=== PATIENT | male | born 1950 | race Caucasian/White ===

== ENCOUNTER 2018-05-23 18:38 | Emergency (ER) | payer MEDICARE, MEDICAID ==
[~2018-05-23] VITALS: Ht 177.8 cm; Wt 93.0 kg
[2018-05-23 19:14] VITALS: BP 150/55
--- NOTE | 2018-05-23 20:40 | NUR ---
PT TAKEN TO BED 7
--- NOTE | 2018-05-23 20:44 | NUR ---
BIB SELF. PT STATES HX OF DMII. STRUGGLING WITH INFECTION TO LEFT 3RD FINGER. TIP IS NECROTIC. 1CM OF TIP BLACK TISSUE. EDEMA ALONG FINGER AND HAND. 6/10 PAIN. PT STATES X3 SURGERIES TO FINGER BUT DIFFICULT TO HEAL. VSS. POSITIONED IN BED FOR COMFORT. ER MD AWARE. CONTINUE TO MONITOR.
--- NOTE | 2018-05-23 20:44 | NUR ---
Dr. Powers evaluating patient at bedside.
[2018-05-23 21:09] LABS: BASOPHILS % (AUTO) 0.5 % (0.0-2.0); EOSINOPHILS # (AUTO) 0.3 K/uL (0-0.4); EOSINOPHILS % (AUTO) 3.9 % (0.0-4.0); HEMATOCRIT 35.9 % (36-52); HEMOGLOBIN 12.1 g/dL (12.0-18.0); LYMPHOCYTES # (AUTO) 2.4 K/uL (2.0-11.5); LYMPHOCYTES % (AUTO) 31.2 % (20.5-51.1); MEAN CORPUSCULAR HEMOGLOBIN 32 pg (27-31); MEAN CORPUSCULAR HGB CONC 34 g/dL (33-37); MEAN CORPUSCULAR VOLUME 94.7 fL (80-94); MONOCYTES # (AUTO) 0.6 K/uL (0.8-1.0); MONOCYTES % (AUTO) 7.7 % (1.7-9.3); NEUTROPHILS # (AUTO) 4.3 K/uL (1.8-7.7); NEUTROPHILS % (AUTO) 56.7 % (42.2-75.2); PLATELET COUNT (AUTO) 243 K/uL (140-450); RED BLOOD CELL COUNT(AUTO) 3.79 MIL/uL (4.20-6.10); RED CELL DISTRIBUTION WIDTH 13.5 % (11.6-13.7); WHITE BLOOD COUNT (AUTO) 7.6 K/uL (4.8-10.8)
[2018-05-23 21:22] LABS: ANION GAP 9.2 (8-16); CARBON DIOXIDE 30.7 mmol/L (21-32); CREATININE 1.1 mg/dL (0.7-1.3); POTASSIUM 4.9 mmol/L (3.5-5.1)
[2018-05-23 21:28] LABS: ALBUMIN 3.8 g/dL (3.4-5.0); TOTAL BILIRUBIN 0.2 mg/dL (0.0-1.0)
[2018-05-23] MEDS ORDERED: INSULIN REGULAR, HUMAN 100 UNIT/ML VIAL SUBQ ONE (21:35)
[2018-05-23 22:25] VITALS: BP 148/62
--- NOTE | 2018-05-23 22:25 | NUR ---
Patient discharged with v/s stable. Written and verbal after care instructions given and explained. Patient alert, oriented and verbalized understanding of instructions. Ambulatory with steady gait. All questions addressed prior to discharge. ID band removed. Patient advised to follow up with PMD. Rx of Keflex and Bactrim given. Patient educated on indication of medication including possible reaction and side effects. Opportunity to ask questions provided and answered.
== END 2018-05-23 22:25 | disposition home or self-care (01) ==
LOC: MED 18:38
DX: L03.012 Cellulitis of left finger (principal); I10 Essential (primary) hypertension; E11.9 Type 2 diabetes mellitus without complications; E11.65 Type 2 diabetes mellitus with hyperglycemia; Z98.890 Other specified postprocedural states
CPT/HCPCS: 36415; 73140; 80053; 83605; 85025; 87040; 96372; 99284; J1815; Q0092

== ENCOUNTER 2018-10-08 13:55 | Emergency (ER) | payer MEDICARE, MEDICAID ==
[~2018-10-08] VITALS: Ht 177.8 cm; Wt 88.0 kg
[2018-10-08 14:00] VITALS: BP 148/77
--- NOTE | 2018-10-08 14:11 | NUR ---
68 y male bib referred by pmd. c/o left hand 3rd digit swelling, redness, 5/10 pain x yesterday. pain described as dull and constant. denies discharge. denies n/v/d, chills or fever. vss at this time. [id number]. bed is down, locked, bed rail x 1, ermd to see ptIglesia ace translated to serbian. hx--dm, hyperlipidemia, htn rx---??
--- NOTE | 2018-10-08 14:24 | NUR ---
dr frazier at bedside
[2018-10-08] MEDS ORDERED: LIDOCAINE 1% ***ER ONLY *** 10 MG/ML VIAL INJ ONE (14:30)
[2018-10-08] MEDS ORDERED: LIDOCAINE MPF 1% - 5 mL VIAL 5 ML ONE (14:45)
--- NOTE | 2018-10-08 15:30 | NUR ---
SITE WRAPPED WITH GAUZE
[2018-10-08 15:51] VITALS: BP 142/75
--- NOTE | 2018-10-08 15:51 | NUR ---
Patient discharged with v/s stable. Written and verbal after care instructions given and explained. Patient alert, oriented and verbalized understanding of instructions. Ambulatory with steady gait. All questions addressed prior to discharge. ID band removed. Patient advised to follow up with PMD. Rx of keflex, motrin, bactrim given. Patient educated on indication of medication including possible reaction and side effects. Opportunity to ask questions provided and answered. juan wisdom translated to burkinan.
== END 2018-10-08 15:51 | disposition home or self-care (01) ==
LOC: MED 13:55
DX: L03.011 Cellulitis of right finger (principal); L02.511 Cutaneous abscess of right hand; E11.9 Type 2 diabetes mellitus without complications; I10 Essential (primary) hypertension; Z98.890 Other specified postprocedural states
CPT/HCPCS: 10060; 99283; J2001